=== PATIENT | female | born 1980 | race American Indian/Alaskan Native ===

== ENCOUNTER 2017-01-10 10:09 | Emergency (ER) | payer OTHER ==
[2017-01-10] MEDS ORDERED: DILAUDID IM ONE (10:44)
--- NOTE | 2017-01-10 10:45 | Emergency Department Report ---
ED General Adult HPI - General Chief complaint: Back Pain/Injury Stated complaint: BACK PAIN Time Seen by Provider: 01/10/17 10:25 Source: patient, EMS (ems notes not available at time of chart dictation), RN notes reviewed Mode of arrival: Ambulatory Limitations: No Limitations - History of Present Illness Initial comments: This is a 36-year-old female. She is previously unknown to me. Primary care Dr.: Dr. Cortés in [facility] hematology: Dr. Jerome Past medical history: Pulmonary embolus, epilepsy, currently on xarelto ( stopped monday for testing) Patient reports that her past history of pulmonary embolus wasn't unprovoked pulmonary embolus, and her safemaker requested that she stop her anticoagulation last week for outpatient testing. The patient presents to the ER today complaining of back pain that reminds her of her prior pulmonary embolus. She reports her last pulmonary embolus was diagnosed in May, and it was her only pulmonary embolus. She has been on anticoagulation since then, with the exception of recently stopping it as per her safemaker's request. Her complaint is back pain, it is central, and radiates down to the parathoracic region. There is no chest pain, shortness of breath, nausea, vomiting, diaphoresis, headache, no irritative or obstructive urinary symptoms. There is no leg pain. There is no leg swelling. The pain is achy and sharp, it increases with palpation and twisting. It decreases with rest. -: Gradual Location: back Radiation: back Severity scale (0 -10): 9 Quality: aching Consistency: intermittent Improves with: rest Worsens with: movement Associated Symptoms: denies: confusion, chest pain, cough, diaphoresis, headaches, loss of appetite, malaise, nausea/vomiting, shortness of breath, syncope, weakness - Related Data Allergies Allergy/AdvReac Type Severity Reaction Status Date / Time Sulfa (Sulfonamide Allergy Shortness Verified 01/10/17 10:23 Antibiotics) of Breath ED Review of Systems ROS: Stated complaint: BACK PAIN Other details as noted in HPI Constitutional: denies: fever Eyes: denies: vision change ENT: denies: epistaxis Respiratory: denies: cough Cardiovascular: denies: chest pain Gastrointestinal: denies: abdominal pain Musculoskeletal: back pain Skin: denies: lesions Neurological: denies: weakness ED Past Medical Hx - Past Medical History Previous Medical History?: Yes Hx Pulmonary Embolism: Yes Hx Headaches / Migraines: Yes - Surgical History Past Surgical History?: No - Social History Smoking Status: Never Smoker Substance Use Type: None ED Physical Exam - General Limitations: No Limitations General appearance: alert, in no apparent distress - Head Head exam: Present: atraumatic, normocephalic - Eye Eye exam: Present: normal appearance, EOMI. Absent: nystagmus - ENT ENT exam: Present: normal exam, normal orophraynx, mucous membranes moist, normal external ear exam - Neck Neck exam: Present: normal inspection, full ROM. Absent: tenderness, meningismus - Respiratory Respiratory exam: Present: normal lung sounds bilaterally. Absent: respiratory distress, wheezes, rales, rhonchi, stridor, chest wall tenderness - Cardiovascular Cardiovascular Exam: Present: regular rate, normal rhythm, normal heart sounds. Absent: bradycardia, tachycardia, irregular rhythm, systolic murmur, diastolic murmur, rubs, gallop - GI/Abdominal GI/Abdominal exam: Present: soft, normal bowel sounds. Absent: distended, tenderness, guarding, rebound, rigid, pulsatile mass - Extremities Exam Extremities exam: Present: normal inspection, full ROM, normal capillary refill. Absent: calf tenderness - Back Exam Back exam: Present: normal inspection, full ROM, paraspinal tenderness - Neurological Exam Neurological exam: Present: alert, oriented X3, other (Extraocular movements intact. Tongue midline. No facial droop. Facial sensation intact to light touch in the V1, V2, V3 distribution bilaterally. 5 and 5 strength in 4 extremities.. Sensation is intact to light touch in 4 extremities.). Absent: motor sensory deficit - Psychiatric Psychiatric exam: Present: normal affect, normal mood - Skin Skin exam: Present: warm, dry, intact, normal color. Absent: rash ED Course Vital Signs 01/10/17 01/10/17 01/10/17 10:23 10:31 10:40 Temperature 98.4 F Pulse Rate 92 H 87 Respiratory 16 18 Rate Blood Pressure 135/69 Blood Pressure 120/81 [Right] O2 Sat by Pulse 100 98 98 Oximetry 01/10/17 01/10/17 01/10/17 10:50 11:00 11:10 Temperature Pulse Rate 77 86 77 Respiratory 16 14 17 Rate Blood Pressure 135/69 114/68 114/68 Blood Pressure [Right] O2 Sat by Pulse Oximetry 01/10/17 11:20 Temperature Pulse Rate 90 Respiratory 20 Rate Blood Pressure 114/68 Blood Pressure [Right] O2 Sat by Pulse 94 Oximetry - Reevaluation(s) Reevaluation #1: 01/10/17 11:26 differential diagnosis: Urinary tract infection, musculoskeletal back pain, pneumonia, recurrent pulmonary embolus Assessment and plan: 36-year-old female with reproducible and pleuritic back pain, compliant with anticoagulation, no recurrent risk factors for pulmonary embolus, with pain that is reminiscent of her prior pulmonary embolus. Not tachycardic, not hypoxic, x-ray of the chest is pending, patient low risk by well's criteria, d-dimer is pending. Her pain will be treated symptomatically. Reevaluation #2: 01/10/17 12:23 urinalysis negative. X-ray of the chest negative. D-dimer negative. INR therapeutic. Walks with a steady gait. Very unlikely to be epidural compression syndrome. Patient will be discharged with instructions to follow up with outpatient hematology. ED Medical Decision Making - Lab Data Result diagrams: 01/10/17 10:52 01/10/17 10:52 Vital Signs 01/10/17 10:23 Temperature 98.4 F Pulse Rate 92 H Respiratory 16 Rate Blood Pressure 120/81 [Right] O2 Sat by Pulse 100 Oximetry Lab Results 01/10/17 01/10/17 01/10/17 Range/Units 10:52 10:52 10:52 WBC 5.1 (4.5-11.0) K/mm3 RBC 4.35 (3.65-5.03) M/mm3 Hgb 12.6 (10.1-14.3) gm/dl Hct 38.5 (30.3-42.9) % MCV 88 (79-97) fl MCH 29 (28-32) pg MCHC 33 (30-34) % RDW 14.3 (13.2-15.2) % Plt Count 172 (140-440) K/mm3 PT 25.8 H (12.2-14.9) Sec. INR 2.35 H (0.87-1.13) APTT 52.7 H (24.2-36.6) Sec. Sodium 141 (137-145) mmol/L Potassium 4.2 (3.6-5.0) mmol/L Chloride 104.4 (98-107) mmol/L Carbon Dioxide 22 (22-30) mmol/L Anion Gap 19 mmol/L BUN 11 (7-17) mg/dL Creatinine 0.6 L (0.7-1.2) mg/dL Estimated GFR > 60 ml/min BUN/Creatinine Ratio 18.33 % Glucose 102 H (65-100) mg/dL Calcium 9.5 (8.4-10.2) mg/dL - Radiology Data Radiology results: image reviewed interpreted by me: X-ray the chest is negative for acute disease Critical care attestation.: If time is entered above; I have spent that time in minutes in the direct care of this critically ill patient, excluding procedure time. ED Disposition Clinical Impression: Back pain Disposition: TO HOME OR SELFCARE Is pt being admited?: No Does the pt Need Aspirin: No Condition: Stable Instructions: Acute Low Back Pain (ED) Additional Instructions: Continue current outpatient medications as directed. Follow up with her safemaker within the next week. Return to the ER right away with new pain, worsening pain, migration of pain, fevers, chills, confusion, chest pain, shortness of breath, nausea, vomiting, inability to tolerate liquid feeds. Take acetaminophen, 650 mg every 4-6 hours as needed for pain. This medication can be purchased [id number]. Referrals: PRIMARY MD BABATUNDE [Primary Care Provider] - 3-5 Days [place] R[facility] MD [Staff Physician] - 3-5 Days
[2017-01-10 11:06] LABS: Hematocrit 38.5 % (30.3-42.9); Hemoglobin 12.6 gm/dl (10.1-14.3); Mean Corpuscular HGB Conc 33 % (30-34); Mean Corpuscular Hemoglobin 29 pg (28-32); Mean Corpuscular Volume 88 fl (79-97); Platelet Count 172 K/mm3 (140-440); Red Blood Count 4.35 M/mm3 (3.65-5.03); Red Cell Distribution Width 14.3 % (13.2-15.2); White Blood Count 5.1 K/mm3 (4.5-11.0)
[2017-01-10 11:19] LABS: Anion Gap 19 mmol/L; BUN/Creatinine Ratio 18.33; Blood Urea Nitrogen 11 mg/dL (7-17); Calcium 9.5 mg/dL (8.4-10.2); Carbon Dioxide 22 mmol/L (22-30); Chloride 104.4 mmol/L (98-107); Glucose 102 mg/dL (65-100); Potassium 4.2 mmol/L (3.6-5.0); Sodium 141 mmol/L (137-145)
[2017-01-10 11:24] LABS: INR 2.35 (0.87-1.13); Partial Thromboplastin Time 52.7 Sec. (24.2-36.6)
[2017-01-10 12:03] LABS: Bacteria,Urine 1+ /HPF (Negative); Bilirubin,Urine NEG (Negative); Blood,Urine NEG (Negative); Ketones,Urine NEG (Negative); Leukocyte Esterase,Urine NEG (Negative); Mucus,Urine 2+ /HPF; Nitrite,Urine NEG (Negative); Protein,Urine <15 mg/dL mg/dL (Negative)
[2017-01-10 12:23] VITALS: BP 114/68
--- NOTE | 2017-01-10 12:48 | XRay Report ---
ROUTINE CHEST, TWO VIEWS: HISTORY: chest pain. The trachea, heart, mediastinal contour, lung callahan and bony thorax are unremarkable. IMPRESSION: Unremarkable chest x-ray.
== END 2017-01-10 12:45 | disposition home or self-care (01) ==
LOC: ED 10:09
DX: M54.9 Dorsalgia, unspecified (principal); G43.909 Migraine, unspecified, not intractable, without status migrainosus; Z86.711 Personal history of pulmonary embolism; Z88.2 Allergy status to sulfonamides; X58.XXXA Exposure to other specified factors, initial encounter; Y93.89 Activity, other specified; Y99.9 Unspecified external cause status; Y92.89 Other specified places as the place of occurrence of the external cause
CPT/HCPCS: 36415; 71020; 80048; 81001; 84702; 85027; 85379; 85610; 85730; 96372; 99284; J1170